=== PATIENT | female | born 1965 | race Caucasian/White ===

== ENCOUNTER → 2018-02-05 | Outpatient (CLI) | payer BC ==
[2018-02-05 07:23] LABS: HCT 37.1 % (34.0-46.0); HGB 12.5 gm/dL (11.4-16.0); MCH 31.4 pg (25.0-35.0); MCHC 33.8 g/dL (31.0-37.0); Mean Platelet Volume 6.8; Platelet Count 309 k/uL (150-450); RBC 3.99 m/uL (3.80-5.40); RDW 12.5 % (11.5-15.5); WBC 3.7 k/uL (3.8-10.6)
[2018-02-05 07:55] LABS: T4, Free (Free Thyroxine) 0.84 ng/dL (0.78-2.19)
== END | disposition home or self-care (01) ==
LOC: LABWHC1 06:36
PROVIDERS: ATTEND Obstetrics & Gynecology
DX: Z13.220 Encounter for screening for lipoid disorders (principal); Z13.29 Encounter for screening for other suspected endocrine disorder; Z13.1 Encounter for screening for diabetes mellitus; Z13.0 Encounter for screening for diseases of the blood and blood-forming organs and certain disorders involving the immune mechanism
CPT/HCPCS: 36415; 80061; 84439; 84443; 84479; 85027

== ENCOUNTER → 2018-03-04 | Outpatient (CLI) | payer BC ==
--- NOTE | 2018-03-05 14:00 | MM ---
Reason for exam: screening (asymptomatic). Last mammogram was performed 3 years and 4 months ago. History: Patient is postmenopausal and had first child at age 37. Took hormonal contraceptives for 20 years. Physical Findings: A clinical breast exam by your physician is recommended on an annual basis and results should be correlated with mammographic findings. MG 3D Screening Mammo W/Cad Bilateral CC and MLO view(s) were taken. Prior study comparison: November 19, 2014, bilateral MG screening mammo w CAD. November 18, 2013, bilateral digital screening mammo w/CAD. The breast tissue is heterogeneously dense. This may lower the sensitivity of mammography. No significant changes when compared with prior studies. ASSESSMENT: Benign, BI-RAD 2 RECOMMENDATION: Routine screening mammogram of both breasts in 1 year.
== END | disposition home or self-care (01) ==
LOC: RADMAMWWP 07:36
PROVIDERS: ATTEND Obstetrics & Gynecology
DX: Z12.31 Encounter for screening mammogram for malignant neoplasm of breast (principal)
CPT/HCPCS: 77063; 77067

== ENCOUNTER → 2018-03-24 | Outpatient (CLI) | payer BC ==
--- NOTE | 2018-03-24 10:07 | BD ---
EXAMINATION TYPE: Axial Bone Density DATE OF EXAM: 03/24/2018 COMPARISON: NONE CLINICAL HISTORY: baseline Height: 5'4 Weight: 167 FRAX RISK QUESTIONS: Secondary Osteoporosis: RISK FACTORS HISTORY OF: Diet low in dairy products/other sources of calcium: y Postmenopausal woman: y MEDICATIONS: Additional Medications: Additional History: EXAM MEASUREMENTS: Bone mineral densitometry was performed using the [employer] System. Bone mineral density as measured about the Lumbar spine is: ----- L1-L4(G/cm2): 0.944 T Score Values are as follows: ----- L2: -2.0 ----- L3: -2.1 ----- L4: -2.1 ----- L1-L4: -2.0 Bone mineral density about the R hip (g/cm2): 0.796 Bone mineral density about the L hip (g/cm2): 0.812 T Score values are as follows: -----R Neck: -1.7 -----L Neck: -1.6 -----R Total: -1.8 -----L Total: -1.7 IMPRESSION: Osteopenia (T Score between -2.5 and -1). There is slightly increased risk of fracture and the patient may be considered for treatment. Re-Screen 2-5 years. NOTE: T-SCORE=SD OF THE YOUNG ADULT MEAN.
== END | disposition home or self-care (01) ==
LOC: RADBDWWP 06:47
PROVIDERS: ATTEND Obstetrics & Gynecology
DX: M85.80 Other specified disorders of bone density and structure, unspecified site (principal)
CPT/HCPCS: 77080

== ENCOUNTER → 2019-04-23 | Outpatient (CLI) | payer BC ==
[2019-04-23 08:27] LABS: HCT 39.3 % (34.0-46.0); HGB 12.9 gm/dL (11.4-16.0); MCH 31.9 pg (25.0-35.0); MCHC 32.9 g/dL (31.0-37.0); MCV 97.2 fL (80.0-100.0); Mean Platelet Volume 7.2; Platelet Count 297 k/uL (150-450); RBC 4.04 m/uL (3.80-5.40); RDW 12.8 % (11.5-15.5); WBC 4.1 k/uL (3.8-10.6)
[2019-04-23 11:46] LABS: LDL Cholesterol,Calculated 131.8 mg/dL (0.0-131.0); VLDL Calculation 15.2 mg/dL (5.00-40.00)
== END | disposition home or self-care (01) ==
LOC: LABWHC1 07:12
PROVIDERS: ATTEND Obstetrics & Gynecology
DX: Z13.220 Encounter for screening for lipoid disorders (principal); Z13.1 Encounter for screening for diabetes mellitus; Z13.0 Encounter for screening for diseases of the blood and blood-forming organs and certain disorders involving the immune mechanism
CPT/HCPCS: 36415; 80061; 82947; 85027

== ENCOUNTER → 2023-12-20 | Outpatient (CLI) | payer BC ==
--- NOTE | 2023-12-20 10:43 | CA ---
Exercise Stress Test Report Name: Radha Hood Exam Date: 12/20/2023 08:56 Exam Location: [facility] Ht (in): 64 Wt (lb): 116 BSA: 1.55 Ordering Phys: Ascencion Schultz MD Referring Phys: ASCENCION SCHULTZ Technologist: LUIS EDUARDO LINARES Age: 58 Gender: F : 1965 Procedure CPT: Indications: R07.89 other chest pain ICD-10 Codes: Patient History: Medications: NONE Meds past 24 hrs: Pretest Chest Pain: STRESS TEST Vinicio Protocol Exercise Duration (min:sec): 08:[address] Depressions (mm): Angina Score: Silvestre Score: Resting HR (bpm): 73 Peak HR (bpm): 140 Resting BP (mmHg): 123 / 84 Peak BP (mmHg): 133 / 76 MPHR: 164 Target HR: 139 % MPHR: 85 METS: 10.3 Total Dose: Peak Dose: Atropine: Double Product: 76729 BP Response: Stress Termination: TARGET HR REACHED/MAX EXERTION Stress Symptoms: NO SYMPTOMS Stress Summary: ECG ANALYSIS Resting ECG: Normal sinus rhythm normal axis normal intervals Stress ECG: Patient exercised on Vinicio protocol for 8 minutes achieving 85% of predicted maximal heart rate without chest pain or diagnostic ST segment depression CONCLUSIONS Good exercise tolerance Negative stress test by EKG criteria Dr. Leroy Boateng MD (Electronically Signed) Final Date: 20 December 2023 10:42
--- NOTE | 2023-12-22 17:02 | MM ---
Reason for Exam: Screening (asymptomatic). Last mammogram was performed 5 year(s) and 10 month(s) ago. Patient History: Menarche at age 14. First Full-Term at age 34. Late child-bearing (after 32). Postmenopausal. Patient used Hormonal Contraceptives for 20 years. Risk Values: Carlene 5 year model risk: 1.7%. NCI Lifetime model risk: 10.9%. Prior Study Comparison: 11/18/2013 Bilateral Screening Mammogram, [facility]. 11/19/2014 Bilateral Screening Mammogram, [facility]. 03/04/2018 Bilateral Screening Mammogram, [facility]. Tissue Density: The breasts are heterogeneously dense, which may obscure small masses. Findings: Analyzed By CAD. There is no suspicious group of microcalcifications or new suspicious mass in either breast. Overall Assessment: Negative, BI-RAD 1 Management: Screening Mammogram of both breasts in 1 year. . Patient should continue monthly self-breast exams. A clinical breast exam by your physician is recommended on an annual basis. This exam should not preclude additional follow-up of suspicious palpable abnormalities. Note on Carlene scores and lifetime risk: 1. A Carlene score greater than 3% is considered moderate risk. If this is the case, consider specialist referral to assess eligibility for a risk reducing agent. 2. If overall lifetime risk for the development of breast cancer is 20% or higher, the patient may qualify for future screening with alternating mammogram and breast MRI. Electronically signed and approved by: Carlos Chowdary M.D. Radiologist
== END | disposition home or self-care (01) ==
LOC: RADMAMWWP 07:49
PROVIDERS: ATTEND Family Medicine
DX: Z12.39 Encounter for other screening for malignant neoplasm of breast (principal); M54.16 Radiculopathy, lumbar region; Z80.3 Family history of malignant neoplasm of breast; Z78.0 Asymptomatic menopausal state; R07.89 Other chest pain
CPT/HCPCS: 77063; 77067; 93017